=== PATIENT | male | born 1965 | race Caucasian/White ===

== ENCOUNTER 2021-03-05 16:03 | Emergency (ER) | payer OTHER ==
[~2021-03-05 16:03] MED LIST: AUGMENTIN 875-1 EACH PO; COMBIVENT0.074 GM/I INH; ECOTRIN81 MG PO; PREDNISONE10 MG PO; ROBITUSSIN DM UD5 ML PO; SYNTHROID 125125 MCG PO; SYNTHROID25 MCG PO; VIBRAMYCIN100 MG PO
[2021-03-05 16:44] LABS: HEMOGLOBIN 15.2 gm/dl (14.0-17.5); RED BLOOD COUNT 5.01 M/UL (4.20-5.50); WHITE BLOOD COUNT 10.8 K/UL (4.5-11.0)
[2021-03-05 17:07] LABS: BUN/CREATININE RATIO 15 (0-10)
[2021-03-05] MEDS ORDERED: SYNTHROID125 MCG PO (20:41)
== END 2021-03-05 20:46 | disposition home or self-care (01) ==
LOC: ER1 16:03
PROVIDERS: Emergency Medicine
DX: E03.9 Hypothyroidism, unspecified (principal); I10 Essential (primary) hypertension
CPT/HCPCS: 71045; 80053; 82550; 82553; 83874; 83880; 84439; 84443; 84484; 85025; 99285